=== PATIENT | male | born 1990 | race Caucasian/White ===

== ENCOUNTER 2016-11-06 08:22 | Emergency (ER) | payer OTHER ==
[2016-11-06 08:34] VITALS: BP 117/69
--- NOTE | 2016-11-06 08:42 | UC ---
Abdominal Pain Male HPI - HPI Summary HPI Summary: 18 hours of diarrhea but no vomting (does have nausea) was tachycardic this morning but began drinking "lots of" water and "poweraid" no fevers - History of Current Complaint Chief Complaint: UCAbdominalPain Stated Complaint: DIARRHEA NAUSEA Time Seen by Provider: 11/06/16 08:29 Hx Obtained From: Patient Onset/Duration: Sudden Onset, Lasting Hours - 18, Still Present Timing: Constant Severity Initially: Moderate Severity Currently: Moderate Pain Intensity: 5 Pain Scale Used: 0-10 Numeric Location: Diffuse Radiates: No Character: Cramping Aggravating Factor(s):: Food Alleviating Factor(s): Rest Associated Signs And Symptoms: Positive: Decreased Appetite, Nausea, Diarrhea. Negative: Back Pain, Blood in Stool, Urinary Symptoms - Allergies/Home Medications Allergies/Adverse Reactions: Allergies Allergy/AdvReac Type Severity Reaction Status Date / Time No Known Allergies Allergy Verified 11/06/16 08:33 PMH/Surg Hx/FS Hx/Imm Hx Previously Healthy: Yes - Surgical History Surgical History: None - Family History Known Family History: Positive: None Family History: denies cardiovascular issues in family lineage - Social History Occupation: Employed Full-time Lives: With Family Alcohol Use: Occasionally Substance Use Type: None Smoking Status (MU): Never Smoked Tobacco Review of Systems Constitutional: Negative Skin: Negative Eyes: Negative ENT: Negative Respiratory: Negative Cardiovascular: Negative Gastrointestinal: Abdominal Pain, Diarrhea Genitourinary: Negative Motor: Negative Neurovascular: Negative Musculoskeletal: Negative Neurological: Negative Psychological: Negative All Other Systems Reviewed And Are Negative: Yes Physical Exam Triage Information Reviewed: Yes Appearance: Well-Appearing, No Pain Distress, Well-Nourished Vital Signs: Initial Vital Signs Temp 98.4 F 11/06/16 08:28 Pulse 81 11/06/16 08:28 Resp 20 11/06/16 08:28 BP 117/69 11/06/16 08:28 Pulse Ox 100 11/06/16 08:28 Vital Signs Reviewed: Yes Eye Exam: Normal Eyes: Positive: Conjunctiva Clear ENT Exam: Normal ENT: Positive: Normal ENT inspection, Hearing grossly normal, Pharynx normal, TMs normal. Negative: Nasal congestion, Nasal drainage, Tonsillar swelling, Tonsillar exudate, Trismus, Muffled/hoarse voice Dental Exam: Normal Neck exam: Normal Neck: Positive: Supple, Nontender, No Lymphadenopathy Respiratory Exam: Normal Respiratory: Positive: Chest non-tender, Lungs clear, Normal breath sounds, No respiratory distress, No accessory muscle use Cardiovascular Exam: Normal Cardiovascular: Positive: RRR, No Murmur, Pulses Normal, Brisk Capillary Refill Abdominal Exam: Normal Abdomen Description: Positive: Nontender, No Organomegaly, Soft Bowel Sounds: Positive: Present Musculoskeletal Exam: Normal Musculoskeletal: Positive: Strength Intact, ROM Intact, No Edema Neurological Exam: Normal Neurological: Positive: Alert Psychological Exam: Normal Skin Exam: Normal Abd Pain Male Course/Dx - Course Course Of Treatment: zofran increase fluids, rest follow with pcp re-check prn - Differential Dx/Clinical Impression Differential Diagnosis/HQI/PQRI: Constipation, Ischemic Bowel, Other - viral illness, acute nausea, vomitinf and diarrhea Provider Diagnoses: Acute Gastroenteritis Discharge - Discharge Plan Condition: Stable Disposition: HOME Prescriptions: Ondansetron ODT TAB* [Zofran Odt TAB*] 4 - 8 mg PO Q6H PRN #12 tab.odt PRN Reason: nausea/vomiting Patient Education Materials: Acute Nausea and Vomiting (ED), Acute Diarrhea (ED ), Viral Syndrome (ED), Nutrition Tips for Relief of Diarrhea (ED) Referrals: [facility] [facility] [Outside] - If Needed
== END 2016-11-06 09:03 | disposition home or self-care (01) ==
LOC: UCEAST 08:22
DX: K52.9 Noninfective gastroenteritis and colitis, unspecified (principal)
CPT/HCPCS: 99212; G0463

== ENCOUNTER 2016-12-16 20:04 | Emergency (ER) | payer OTHER ==
[2016-12-16 20:40] VITALS: BP 135/60
--- NOTE | 2016-12-16 21:16 | UC ---
Respiratory Complaint HPI - HPI Summary HPI Summary: HAS HAD MILD COUGH FOR A FEW DAYS. WORSE TODAY WITH SOME ST. NO FEVER, N/V/D. NO EAR PAIN OR NASAL CONGESTION. - History of Current Complaint Chief Complaint: UCRespiratory Stated Complaint: COUGH,CONGESTION Time Seen by Provider: 12/16/16 21:04 Hx Obtained From: Patient Onset/Duration: Gradual Onset, Lasting Days, Still Present Timing: Constant Severity Initially: Mild Severity Currently: Moderate Pain Intensity: 4 Pain Scale Used: 0-10 Numeric Character: Cough: Nonproductive Aggravating Factors: Nothing Alleviating Factors: Nothing Associated Signs And Symptoms: Positive: URI. Negative: Dyspnea, Fever, Chills , Pleuritic Chest Pain, Wheezing, Hemoptysis, Dizziness, Calf Pain, Calf Swelling, Edema, Nasal Congestion, Hoarseness, Sinus Discomfort - Allergies/Home Medications Allergies/Adverse Reactions: Allergies Allergy/AdvReac Type Severity Reaction Status Date / Time No Known Allergies Allergy Verified 11/06/16 08:33 Home Medications: Home Medications Cetirizine* [ZyrTEC 10 MG TAB*] 10 mg PO DAILY 12/16/16 [History Confirmed 12/16] Triamcinolone NASAL SPRAY* [Nasacort Aq Nasal [place]*] 12/16/16 [History] PMH/Surg Hx/FS Hx/Imm Hx - Additional Past Medical History Additional PMH: ALLERGIES Respiratory History Of: Reports: Asthma - childhood - Surgical History Surgical History: None - Family History Known Family History: Positive: None Family History: denies cardiovascular issues in family lineage - Social History Alcohol Use: Occasionally Substance Use Type: None Smoking Status (MU): Never Smoked Tobacco Review of Systems Constitutional: Negative ENT: Sore Throat Respiratory: Cough Cardiovascular: Negative Gastrointestinal: Negative All Other Systems Reviewed And Are Negative: Yes Physical Exam Triage Information Reviewed: Yes Appearance: Well-Appearing, No Pain Distress, Well-Nourished Vital Signs: Initial Vital Signs Temp 98.8 F 12/16/16 20:33 Pulse 86 12/16/16 20:33 Resp 16 12/16/16 20:33 BP 135/60 12/16/16 20:33 Pulse Ox 100 12/16/16 20:33 Vital Signs Reviewed: Yes Eyes: Positive: Conjunctiva Clear ENT: Positive: Hearing grossly normal, Pharynx normal, TMs normal Neck: Positive: Supple, Nontender, No Lymphadenopathy Respiratory Exam: Normal Cardiovascular Exam: Normal Abdomen Description: Positive: Soft Musculoskeletal: Positive: No Edema Neurological: Positive: Alert Psychological: Positive: Age Appropriate Behavior Skin: Negative: rashes UC Diagnostic Evaluation - Laboratory O2 Sat by Pulse Oximetry: 100 Respiratory Course/Dx - Differential Dx/Diagnosis Provider Diagnoses: ACUTE URI Discharge - Discharge Plan Condition: Stable Disposition: HOME Patient Education Materials: Upper Respiratory Infection (ED) Referrals: Non Staff,Doctor [Primary Care Provider] - Additional Instructions: NO EVIDENCE OF BACTERIAL INFECTION ON EXAM TODAY. NO INDICATION FOR ANTIBIOTICS. YOUR SYMPTOMS SHOULD START TO IMPROVE WITH TIME. IT MAY TAKE SEVERAL WEEKS TO BE FULLY RESOLVED. CALL THE NUMBER BELOW FOR ASSISTANCE IN ESTABLISHING WITH A PCP An additional resource available to assist in finding the appropriate physician for your health care needs is [facility] ([facility]). You may contact them by calling [phone].
== END 2016-12-16 21:33 | disposition home or self-care (01) ==
LOC: UCEAST 20:04
DX: J06.9 Acute upper respiratory infection, unspecified (principal)
CPT/HCPCS: 99211; G0463

== ENCOUNTER 2017-09-27 13:16 | Emergency (ER) | payer OTHER ==
--- NOTE | 2017-09-27 16:02 | RAD ---
INDICATION: Right testicle and groin pain COMPARISON: None TECHNIQUE: Duplex interrogation of the scrotum was performed. FINDINGS: The testicles are normal in size and echogenicity. There is no evidence for testicular mass. The right testis measures 4.6 x 2.1 x 2.8 cm and the left 4.2 x 1.9 x 2.9 cm. There is symmetric flow on Doppler interrogation. Arterial and venous waveforms are identified bilaterally. The epididymides appear normal. The right epididymal head measures 0.7 x 0.8 cm and the left 0.8 x 1.1 cm. There are no hydroceles. There are no varicoceles. IMPRESSION: Normal ultrasound of the scrotum.
[2017-09-27 16:12] VITALS: BP 131/76
--- NOTE | 2017-09-27 16:14 | ED ---
GI/ HPI - HPI Summary HPI Summary: 27 YO M WITH C/O RT SCROTAL PAIN. STARTED 3 DAYS AGO WHEN, DURING EJACULATION, HIS RIGHT TESTICLE RETRACTED UP OUT OF THE SCROTUM. IT THEN DROPPED BACK INTO IT'S NORMAL POSITION. THE DISCOMFORT IS A 1/10. IT IS WORSE WITH MOVEMENT. NO SWELLING. NO C/O STI. NO PENILE DISCHARGE. NO ABD PAIN. NO FEVER. NO DYSURIA. - History of Current Complaint Chief Complaint: UCGeneralIllness Time Seen by Provider: 09/27/17 14:36 Stated Complaint: PAIN IN GROIN AREA Hx Obtained From: Patient Onset/Duration: Started Days Ago Timing: Constant Severity: Mild Current Severity: Mild Location of Pain: Other - RT SCROTUM Additional Locations for Males: Scrotum - RIGHT Pain Characteristics: Dull Associated Signs and Symptoms: Positive: Negative. Negative: UTI Symptoms Additional Signs & Symptoms: Negative: Penile Swelling, Penile Discharge, Lesions, STD Aggravating Factor(s): Straining, Movement Alleviating Factor(s): Rest, Position - Allergy/Home Medications Allergies/Adverse Reactions: Allergies Allergy/AdvReac Type Severity Reaction Status Date / Time No Known Allergies Allergy Verified 11/06/16 08:33 PMH/Surg Hx/FS Hx/Imm Hx Previously Healthy: Yes Respiratory History: Reports: Hx Asthma - childhood - Cancer History Cancer Type, Location and Year: none Infectious Disease History: No Infectious Disease History: Denies: Hx Clostridium Difficile, Hx Hepatitis, Hx Human Immunodeficiency Virus (HIV), Hx of Known/Suspected MRSA, Hx Shingles, Hx Tuberculosis, Hx Known/ Suspected VRE, Hx Known/Suspected VRSA, History Other Infectious Disease, Traveled Outside the [place] in Last 30 Days - Family History Known Family History: Positive: None Family History: denies cardiovascular issues in family lineage - Social History Alcohol Use: Weekly Substance Use Type: Reports: None Smoking Status (MU): Never Smoked Tobacco Review of Systems Constitutional: Negative Eyes: Negative ENT: Negative Cardiovascular: Negative Respiratory: Negative Gastrointestinal: Negative Positive: see HPI Musculoskeletal: Negative Skin: Negative Neurological: Negative Psychological: Normal All Other Systems Reviewed And Are Negative: Yes Physical Exam Triage Information Reviewed: Yes Vital Signs On Initial Exam: Initial Vitals Temp Pulse Resp BP Pulse Ox 98.1 F 71 16 113/48 100 09/27/17 13:32 09/27/17 13:32 09/27/17 13:32 09/27/17 13:32 09/27/17 13:32 Vital Signs Reviewed: Yes Appearance: Positive: Well-Appearing, No Pain Distress Skin: Positive: Warm, Skin Color Reflects Adequate Perfusion Head/Face: Positive: Normal Head/Face Inspection Eyes: Positive: Normal, EOMI, PATY Neck: Positive: Supple Respiratory/Lung Sounds: Positive: Clear to Auscultation Cardiovascular: Positive: RRR Abdomen Description: Positive: Nontender, No Organomegaly, Soft Bowel Sounds: Positive: Present Male Genital Exam: Positive: normal genitalia, no hernia, scrotum tenderness (R ) - CREMASTERIC MUSCLE TENDER TO PALPATION. Negative: epididymal tenderness, erythema, hernia mass, inguinal tenderness, lesions, scrotum tenderness (L), testicular tenderness (R), testicular tenderness (L), urethral discharge Musculoskeletal: Positive: Normal Neurological: Positive: Normal Psychiatric: Positive: Normal Diagnostics - Vital Signs Vital Signs Temp Pulse Resp BP Pulse Ox 09/27/17 16:11 98.5 F 66 16 131/76 100 09/27/17 13:32 98.1 F 71 16 113/48 100 - Laboratory Lab Results: Lab Results 09/27/17 Range/Units 14:58 POC Urine Color Yellow POC Urine Clarity Clear POC Urine pH 5.5 (5-9) POC Ur Specif [place] >= 1.030 (1.010-1.030) POC Urine Protein Negative (Negative) POC Ur Glucose (UA) Negative (Negative) POC Urine Ketones Negative (Negative) POC Urine Blood Negative (Negative) POC Urine Nitrite Negative (Negative) POC Urine Bilirubin Negative (Negative) POC Urine Urobilinogen 0.2 (Negative) POC U Leukocyte Esteras Negative (Negative) Lab Statement: Any lab studies that have been ordered have been reviewed, and results considered in the medical decision making process. GIGU Course/Dx - Course Course Of Treatment: U/S AND UA NL. GC/CHLAMYDIA/HIV PENDING. PROBABLE RT CREMASTERIC MUSCLE STRAIN. F/U PMD; RETURN IF WORSE. - Diagnoses Provider Diagnoses: Testicular/scrotal pain Discharge - Discharge Plan Condition: Stable Disposition: HOME Patient Education Materials: Testicle Pain (ED), Scrotal Pain (ED) Referrals: No Primary Care Phys,NOPCP [Primary Care Provider] - [facility] [Provider Group] Additional Instructions: FOLLOW UP WITH YOUR DOCTOR. GET RECHECKED FOR ANY WORSENING OF YOUR CONDITION; PAIN, SWELLING, FEVER, YOU FEEL ILL OR QUESTIONS OR CONCERNS.
--- NOTE | 2017-09-28 20:35 | UC ---
- Progress Note Progress Note: Neg GC/CH No change [facility] 09/28/2017 Course/Dx - Course Course Of Treatment: U/S AND UA NL. GC/CHLAMYDIA/HIV PENDING. PROBABLE RT CREMASTERIC MUSCLE STRAIN. F/U PMD; RETURN IF WORSE. - Diagnoses Provider Diagnoses: Testicular/scrotal pain
== END 2017-09-27 16:22 | disposition home or self-care (01) ==
LOC: UCEAST 13:16
DX: N50.82 Scrotal pain (principal); Z11.4 Encounter for screening for human immunodeficiency virus [HIV]
CPT/HCPCS: 36415; 76870; 81003; 86703; 87491; 87591; 99211; G0463